=== PATIENT | male | born 1960 | race Caucasian/White ===

== ENCOUNTER 2017-07-15 00:57 | Emergency (ER) | payer BC, OTHER ==
[2017-07-15] MEDS: HYDROCODONE/APAP (10/325) TAB PO (04:34)
[2017-07-15] MEDS: KETOROLAC 60 MG INJ IM (04:34)
== END 2017-07-15 05:04 | disposition home or self-care (01) ==
LOC: FTE 00:57
DX: M54.2 Cervicalgia (principal); I10 Essential (primary) hypertension
CPT/HCPCS: 96372; 99284-25

== ENCOUNTER 2018-04-24 00:18 | Emergency (ER) | payer BC | END 2018-04-24 03:30 | disposition home or self-care (01) | LOC: E/R 00:18 | DX: N40.1 Benign prostatic hyperplasia with lower urinary tract symptoms (principal); R40.2142 Coma scale, eyes open, spontaneous, at arrival to emergency department; R40.2362 Coma scale, best motor response, obeys commands, at arrival to emergency department; R40.2252 Coma scale, best verbal response, oriented, at arrival to emergency department; R33.8 Other retention of urine; I10 Essential (primary) hypertension; Z79.82 Long term (current) use of aspirin | CPT/HCPCS: 51702; 87086; 99283-25 ==

== ENCOUNTER 2018-08-20 09:53 | Inpatient (IN) | payer BC ==
[2018-08-20] MEDS ORDERED: GLYCOPYRROLATE 0.4 MG INJ (12:28)
[2018-08-20] MEDS ORDERED: CEFAZOLIN 1 GM INJ (12:28)
[2018-08-20] MEDS ORDERED: NEOSTIGMINE 3 MG/3 ML SYRINGE (12:28)
[2018-08-20] MEDS ORDERED: PROPOFOL 20 ML (12:28)
[2018-08-20] MEDS ORDERED: ROCURONIUM 50 MG INJ (12:28)
[2018-08-20] MEDS ORDERED: TRIMETHOBENZAMIDE 100 MG/ML VIAL IM (12:30)
[2018-08-20] MEDS ORDERED: HYDROmorphONE 1 MG/5 ML IV SYRINGE IV (12:30)
[2018-08-20] MEDS ORDERED: FENTAnyl 50 MCG/ML VIAL ×3 (12:30→13:52)
[2018-08-20] MEDS ORDERED: IPRATROPIUM (NEB) 0.5 MG/2.5 ML AMP HHN (12:30)
[2018-08-20] MEDS ORDERED: ONDANSETRON 4 MG INJ (12:30)
[2018-08-20] MEDS ORDERED: EPHEDrine SULFATE 50 MG/5 ML SYG IV (12:30)
[2018-08-20] MEDS ORDERED: OXYCODONE/ACETAMINOPHEN (5/325) TAB PO ×2 (12:30)
[2018-08-20] MEDS ORDERED: DIPHENHYDRAMINE 50 MG INJ IV (12:30)
[2018-08-20] MEDS ORDERED: MIDAZOLAM 1 MG/ML 2 ML INJ (12:30)
[2018-08-20] MEDS ORDERED: ALBUTEROL 0.083% (NEB) 2.5 MG/3 ML AMP HHN (12:30)
[2018-08-20] MEDS ORDERED: MIDAZOLAM 1 MG/ML 2 ML INJ IV (12:30)
[2018-08-20] MEDS ORDERED: hydrALAzine 20 MG INJ IV (12:30)
[2018-08-20] MEDS ORDERED: FENTAnyl 50 MCG/ML VIAL IV ×3 (12:30)
[2018-08-20] MEDS ORDERED: DEXAMETHASONE 4 MG/ML 5 ML INJ (12:30)
[2018-08-20] MEDS ORDERED: LABETALOL HCL 20MG INJ IV (12:30)
[2018-08-20] MEDS ORDERED: SUGAMMADEX SODIUM 200 MG/2 ML VIAL IV (14:41)
[2018-08-20] MEDS: MEPERIDINE 25 MG INJ IV (15:15)
[2018-08-20] MEDS: ONDANSETRON 4 MG INJ IV (15:15)
[2018-08-20] MEDS: HYDROmorphONE 1 MG/5 ML IV SYRINGE IV ×2 (15:28→15:45)
[2018-08-20] MEDS ORDERED: MAGNESIUM HYDROXIDE 30ML CUP PO (15:30)
[2018-08-20] MEDS: DEXTROSE 5%-0.45% NACL 1,000 ML IV (18:10)
[2018-08-20] MEDS: CIPROFLOXACIN 500 MG TAB PO (18:10)
[2018-08-20] MEDS: PANTOPRAZOLE (EC) 40 MG TAB PO (20:57)
[2018-08-20] MEDS: CALCIUM CARBONATE 500 MG CHEW TAB PO (20:57)
[2018-08-20] MEDS: DOCUSATE SODIUM 100 MG CAP PO (21:00)
[2018-08-20] MEDS: HYDROCODONE/APAP (5/325) TAB PO (22:02)
[2018-08-21 05:46] LABS: ADD MAN DIFF? NO
[2018-08-21 05:51] LABS: BASOPHILS % 0.1 % (0.0-2.0); EOSINOPHILS % 0.1 % (0.0-7.0); HEMATOCRIT 39.8 % (42.0-52.0); HEMOGLOBIN 13.3 g/dl (14.0-18.0); LYMPHOCYTES # 0.9 10^3/ul (0.8-2.9); LYMPHOCYTES % 8.8 % (15.0-51.0); MEAN CORPUSCULAR HEMOGLOBIN 30.2 pg (29.0-33.0); MEAN CORPUSCULAR HGB CONC 33.4 g/dl (32.0-37.0); MEAN CORPUSCULAR VOLUME 90.5 fl (82.0-101.0); MEAN PLATELET VOLUME 10.5 fl (7.4-10.4); MONOCYTE # 0.3 10^3/ul (0.3-0.9); MONOCYTES % 2.5 % (0.0-11.0); NEUTROPHIL # 9.3 10^3/ul (1.6-7.5); PLATELET COUNT 218 10^3/UL (140-415); RED CELL DISTRIBUTION WIDTH 13.2 % (11.5-14.5)
[2018-08-21 05:51] LABS: WHITE BLOOD COUNT 10.5 10^3/ul (4.8-10.8)
[2018-08-21] MEDS: CIPROFLOXACIN 500 MG TAB PO (06:20)
[2018-08-21] MEDS: PANTOPRAZOLE (EC) 40 MG TAB PO (09:02)
[2018-08-21] MEDS: DOCUSATE SODIUM 100 MG CAP PO (09:02)
[2018-08-21] MEDS: HYDROCODONE/APAP (5/325) TAB PO ×2 (09:04→14:32)
[2018-08-21 16:17] LABS: ANION GAP 12 (5-13); BLOOD UREA NITROGEN 12 mg/dl (7-20); CARBON DIOXIDE 24 mmol/L (21-31); CHLORIDE 102 mmol/L (97-110); CREATININE 0.89 mg/dl (0.61-1.24); Estimated GFR > 60 mL/min (>60); GLUCOSE 194 mg/dl (70-220); POTASSIUM 4.2 mmol/L (3.5-5.1); SODIUM 138 mmol/L (135-144)
== END 2018-08-21 16:30 | disposition home or self-care (01) | DRG 714 ==
LOC: SDS 09:53 → REC 15:04 → MS1 16:45
PROVIDERS: Urology
PROC: 0VT08ZZ Resection of Prostate, Via Natural or Artificial Opening Endoscopic (ICD-10-PCS; principal; 2018-08-20 12:30)
DX: N40.1 Benign prostatic hyperplasia with lower urinary tract symptoms (principal); R33.8 Other retention of urine; I10 Essential (primary) hypertension; E66.9 Obesity, unspecified; Z68.36 Body mass index [BMI] 36.0-36.9, adult
CPT/HCPCS: 80048; 85025; 88305

== ENCOUNTER 2018-09-21 09:40 | Emergency (ER) | payer BC ==
[2018-09-21 11:00] LABS: URINE BLOOD (Dip) POC 2+ (NEGATIVE); URINE GLUCOSE (Dip) POC Negative (NEGATIVE); URINE KETONES (Dip) POC Negative (NEGATIVE); URINE LEUKOCYTE EST (Dip) POC 2+ (NEGATIVE); URINE NITRITE (Dip) POC Negative (NEGATIVE); URINE TOTAL PROTEIN POC 2+ (NEGATIVE)
[2018-09-21] MEDS: CEFTRIAXONE 1 GM INJ IM (11:37)
[2018-09-21] MEDS: LIDOCAINE 1% (MPF) 5 ML VIAL INJ (11:37)
== END 2018-09-21 11:46 | disposition home or self-care (01) ==
LOC: FTE 09:40
DX: N39.0 Urinary tract infection, site not specified (principal); I10 Essential (primary) hypertension
CPT/HCPCS: 81003; 87086; 96372; 99284-25